=== PATIENT | male | born 2000 | race Caucasian/White ===

== ENCOUNTER → 2021-12-29 15:22 | Outpatient (CLI) | payer SELFPAY ==
[2021-12-29 16:37] LABS: Influenza A - CEPHEID Flu A NEGATIVE (NEGATIVE); Influenza B - CEPHEID Flu B NEGATIVE (NEGATIVE)
[2021-12-29 16:41] LABS: COVID-19 CEPHEID PCR (VTM/NP) POSITIVE (Negative)
== END ==
PROVIDERS: Family Provider Pediatrics; Visit Provider Student in an Organized Health Care Education/Training Program
DX: J02.9 Acute pharyngitis, unspecified (principal); R05.9 Cough, unspecified; R53.83 Other fatigue
CPT/HCPCS: 0240U; 87070